=== PATIENT | male | born 1980 | race Caucasian/White ===

== ENCOUNTER 2022-02-05 13:08 | Emergency (ER) | payer BC ==
[2022-02-05] MEDS ORDERED: Ketorolac 30 MG/ML SDV IM ONE (13:39)
[2022-02-05] MEDS ORDERED: Cyclobenzaprine 10 MG Tab PO ONE (13:39)
[2022-02-05] MEDS ORDERED: HYDROmorphone 1 MG/ML Syringe IM ONE (14:10)
== END 2022-02-05 15:23 | disposition home or self-care (01) ==
LOC: JP.ED 13:08
DX: M54.42 Lumbago with sciatica, left side (principal); Z79.899 Other long term (current) drug therapy
CPT/HCPCS: 96372; 99283; A9270; J1170; J1885